=== PATIENT | female | born 1975 | race Caucasian/White ===

== ENCOUNTER 2017-05-31 10:47 | Day surgery (SDC) | payer BC ==
[~2017-05-31 10:47] MED LIST: RINGER'S SOLUTION,LACTATED 1,000 ML IV PRN
[2017-05-31] MEDS ORDERED: BUPIVACAINE HCL/EPINEPHRINE 50 ML VIAL IJ ONE (12:20)
[2017-05-31] MEDS ORDERED: RINGER'S SOLUTION,LACTATED 1,000 ML IV ONE (12:45)
[2017-05-31] MEDS ORDERED: oxyCODONE HCL/ACETAMINOPHEN 1 TAB TABLET PO ONE (12:59)
[2017-05-31] MEDS ORDERED: RINGER'S SOLUTION,LACTATED 1,000 ML IV PRN (12:59)
[2017-05-31 14:01] VITALS: BP 107/71
--- NOTE | 2017-05-31 14:40 | OR ---
Operative Report - Dictated Report Narrative: OPERATIVE REPORT DATE OF OPERATION: 05/31/2017 PREOPERATIVE DIAGNOSIS: Left breast mass benign in appearance POSTOPERATIVE DIAGNOSIS: Left breast mass (pathology pending) OPERATION: Excision of left breast mass SURGEON: Bret Metzger MD ANESTHESIA: Gen. 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 A clip was placed at that time. She recently has noticed an enlarging mass near the nipple, mammograms and ultrasound reveal a slightly larger hypoechoic area. She is brought for excision FINDINGS: Successful excision as demonstrated by tissue radiograph. Benign gross appearance. (Pathology pending) NARRATIVE OF PROCEDURE: The patient was identified in the holding area, the surgical site was marked, and prior to the administration of anesthetic a multidisciplinary timeout was observed. The patient was placed supine, SCDs were applied, and general LMA administered. The left breast was prepped with Betadine solution and isolated with 4 sterile towels. The remainder the patient was covered with a sterile disposable drape. A curving skin incision was made around the nipple areolar border and dissection carried in subcutaneous tissue with electrocautery. The palpable mass was blue in color. A silk suture was placed for traction and the mass was excised with a normal- appearing margin of breast tissue. The base of the wound was inspected for hemostasis which appeared complete. The mass was submitted for a tissue radiograph which demonstrated the lesion in question and the previously placed localization clip. After receiving a correct sponge needle and instrument count tension was turned to closing the wound. Breast tissue was approximated with an interrupted suture of 3-0 chromic. The skin incision was approximated with a running subcuticular suture of 4-0 Vicryl. The operative site was washed and dried. A dressing of Dermabond 2 x 2 and Medipore tape was applied. The operative procedure was terminated at this point. The patient tolerated the anesthetic and procedure well without complication. There was no measurable blood loss. The specimen was submitted to pathology. 0.25% Marcaine with epinephrine was used for local anesthetic infiltration. The patient was transferred back to the ambulatory surgery area awake, extubated, and in stable condition. The patient remained stable throughout a period of postoperative observation. She denied discomfort, was up without assistance and tolerated a regular diet. I shared the operative findings with her. She was discharged home with instructions to keep the area dry and covered for 48 hours but she may then shower and change dressing daily or as needed. She is not to engage in hazardous activity today but may return to normal activity tomorrow. Arrangements were made to contact her with the pathology report and for her to return to the office in one week for wound check. Reviewed and electronically signed
== END 2017-05-31 10:48 | disposition home or self-care (01) ==
LOC: AMB 10:47
PROVIDERS: ATTEND Surgery
PROC: 0HBU0ZX Excision of Left Breast, Open Approach, Diagnostic (ICD-10-PCS; principal; 2017-05-31 11:45)
DX: D24.2 Benign neoplasm of left breast (principal); N60.42 Mammary duct ectasia of left breast; Z68.23 Body mass index [BMI] 23.0-23.9, adult